=== PATIENT | female | born 1975 | race Caucasian/White ===

== ENCOUNTER → 2016-07-26 | Outpatient (CLI) | payer BC ==
--- NOTE | 2016-07-26 14:00 | RAD ---
Diagnostic mammogram of the right breast to include an ultrasound of the right breast 07/26/2016 HISTORY: 6 month follow-up of an area of nodularity within the right breast. COMPARISON: 01/20/2016 and 02/04/2016 This study was interpreted with the benefit of Computerized Aided Detection (CAD). FINDINGS: A CC digital mammogram of the right breast was performed. Comparison study is dated 02/04/2016 and 01/20/2016. The area of nodularity in the medial aspect of the right breast is less prominent on today's study. A real-time ultrasound examination of the right breast at the 8 o'clock position was performed. Comparison is made to the patient's previous ultrasound dated 02/04/2016. A 5 mm simple cyst is seen within the right breast at the 8:00 position. This is unchanged. Two simple cysts are seen in this area immediately adjacent to one another which measure 3 mm and 5 mm in size. These are unchanged. No solid mass is seen. IMPRESSION: Stable sonographic and mammographic appearance of the right breast as outlined above. I would recharacterize the patient's mammogram as a BI-RADS Category 2 benign findings with a recommendation for routine yearly screening mammography for follow-up. BI-RADS CATEGORY: 2 BENIGN FINDING(S) RECOMMENDED FOLLOW-UP: 12M 12 MONTH FOLLOW-UP PQRS compliance statement: Patient information was entered into a reminder system with a target due date 01/19/2017 for the next mammogram. Mammography is a sensitive method for finding small breast cancers, but it does not detect them all and is not a substitute for careful clinical examination. A negative mammogram does not negate a clinically suspicious finding and should not result in delay in biopsying a clinically suspicious abnormality. "Our facility is accredited by the [employer] Mammography [employer]."
== END | disposition home or self-care (01) ==
LOC: MAMMO 10:12
PROVIDERS: ATTEND Obstetrics & Gynecology
DX: R92.8 Other abnormal and inconclusive findings on diagnostic imaging of breast (principal)
CPT/HCPCS: 76641; G0206; 77065

== ENCOUNTER → 2017-03-30 | Outpatient (CLI) | payer BC ==
--- NOTE | 2017-04-02 09:46 | RAD ---
DATE: March 30, 2017 EXAM: MAMMO CHENTE SCREENING BILATERAL HISTORY: Screening study. COMPARISON: January 20, 2016 This study was interpreted with the benefit of Computerized Aided Detection (CAD). 2-D digital mammographic views of both breasts were performed in the CC and MLO projections. 3-D digital tomosynthesis of both breasts were performed in the CC and MLO projections and reviewed on a computer workstation. FINDINGS: The breast parenchyma is scattered and mildly dense. There are no dominant suspicious masses, suspicious microcalcifications or evidence of architectural distortion. IMPRESSION: No mammographic indicators for malignancy. BI-RADS CATEGORY: 1 NEGATIVE RECOMMENDED FOLLOW-UP: 12M 12 MONTH FOLLOW-UP PQRS compliance statement: Patient information was entered into a reminder system with a target due date March 31, 2018 for the next mammogram. Mammography is a sensitive method for finding small breast cancers, but it does not detect them all and is not a substitute for careful clinical examination. A negative mammogram does not negate a clinically suspicious finding and should not result in delay in biopsying a clinically suspicious abnormality. "Our facility is accredited by the [employer] Mammography [employer]." The patient's breast density may affect the ability of mammography to detect breast cancer. There are 4 categories of breast density, A, B, C and D. Breast density A means that most of the breast tissue is replaced with adipose tissue and therefore is not dense. Breast density B means that the breast tissue is mildly dense and scattered. Breast density C means that the breast tissue is heterogeneously dense. Breast density D means that the breast tissue is very dense. Breast densities especially C and D may decrease the sensitivity of mammography to detect breast cancer. Therefore, the patient may benefit from 3-D breast mammography (3D breast tomography) as a part of their screening mammogram. Insurance may or may not pay for this additional imaging. The patient's breast density based on today's mammogram is category B.
== END | disposition home or self-care (01) ==
LOC: MAMMO 14:55
PROVIDERS: ATTEND Obstetrics & Gynecology
DX: Z12.31 Encounter for screening mammogram for malignant neoplasm of breast (principal)
CPT/HCPCS: 77063; 77067

== ENCOUNTER → 2018-04-22 | Outpatient (CLI) | payer BC, OTHER ==
--- NOTE | 2018-04-22 16:27 | RAD ---
DATE: 04/22/2018 EXAM: MAMMO CHENTE SCREENING BILATERAL HISTORY: Routine screening COMPARISON: 03/30/2017 This study was interpreted with the benefit of Computerized Aided Detection (CAD). Breast Density: HETERO The breast parenchyma is heterogenously dense, which could reduce sensitivity of mammography. Breast parenchyma level C. FINDINGS: 2-D and 3-D tomosynthesis imaging was performed in CC and MLO projections. On right CC chente image #16 a 10 x 4 mm oval-shaped nodule is noted inferiorly in the right breast at the 6:00 location. It is not clearly visualized on previous studies. No other new or enlarging breast densities are seen. No suspicious microcalcifications are evident. IMPRESSION: Small inferior right breast nodule as described above. Sonographic evaluation is suggested. BI-RADS CATEGORY: 0 INCOMPLETE: NEEDS ADDITIONAL IMAGING EVALUATION AND/OR PRIOR MAMMOGRAMS FOR COMPARISON. RECOMMENDED FOLLOW-UP: ADD ADDITIONAL IMAGING PQRS compliance statement: Patient information was entered into a reminder system with a target due date for the next mammogram. Mammography is a sensitive method for finding small breast cancers, but it does not detect them all and is not a substitute for careful clinical examination. A negative mammogram does not negate a clinically suspicious finding and should not result in delay in biopsying a clinically suspicious abnormality. "Our facility is accredited by the [employer] Mammography [employer]."
== END | disposition home or self-care (01) ==
LOC: MAMMO 15:42
PROVIDERS: ATTEND Obstetrics & Gynecology
DX: Z12.31 Encounter for screening mammogram for malignant neoplasm of breast (principal); N63.14 Unspecified lump in the right breast, lower inner quadrant
CPT/HCPCS: 77063; 77067

== ENCOUNTER → 2018-05-03 | Outpatient (CLI) | payer OTHER ==
--- NOTE | 2018-05-03 14:14 | RAD ---
Indication: Callback. Technique: Limited ultrasound of the right breast with grayscale and color Doppler images Comparison: Screening mammogram from 04/22/2018. Findings: At 6:00 position approximately 4 cm from the nipple there is an oval-shaped hypoechoic lesion which is wider than taller without internal vascularity measuring 0.5 x 0.6 x 0.2 cm likely prominent duct or decompressed cyst. There is another mass at 6:00 position approximately 4 cm from the nipple measuring 1.0 x 0.7 x 0.5 cm mixed echogenicity lesion which is taller than wider with multiple internal septations and vascularity. No posterior shadowing is seen. Impression: 1. 2 lesions in the right breast the larger one at 7 cm from the nipple shows some internal vascularity which makes it a suspicious lesion. BI-RADS 4. Suspicious. Ultrasound-guided aspiration or core biopsy recommended.
== END | disposition home or self-care (01) ==
LOC: US 13:10
PROVIDERS: ATTEND Internal Medicine
DX: N63.13 Unspecified lump in the right breast, lower outer quadrant (principal)
CPT/HCPCS: 76641

== ENCOUNTER → 2019-07-04 | Outpatient (CLI) | payer OTHER ==
--- NOTE | 2019-07-04 15:49 | RAD ---
EXAMINATION: Diagnostic bilateral mammogram and right breast ultrasound, 07/04/2019 1:00 PM CLINICAL INDICATION: 43-year-old woman presenting for diagnostic bilateral mammogram. History of masses at 6:00 in the right breast, one of which was benign apocrine metaplasia on biopsy. Family history of mother with breast cancer twice by the age of 50. COMPARISON: Screening mammogram 04/22/2018 and 03/30/2017. right breast ultrasound 05/03/2018. BILATERAL DIAGNOSTIC MAMMOGRAM: TECHNIQUE: Digital bilateral full-field CC and MLO views, and CC and MLO tomosynthesis views of the breasts were obtained. CAD was utilized. FINDINGS: The breasts are heterogeneously dense, which may obscure small masses. There is a partially obscured 1.3 cm mass in the outer right breast at 9:00. This was seen on prior screening mammogram but not definitively present on multiple prior exams. There is an additional 5 mm asymmetry in the upper right breast on MLO view, which is also unchanged. No suspicious mass in the left breast. No suspicious calcifications in either breast. Spot compression views of the right breast demonstrate persistence of the mass at 9:00. The asymmetry at 5:00 in the upper right breast has the appearance of superimposed breast tissue. No definite underlying mass in the upper right breast. RIGHT BREAST ULTRASOUND: TECHNIQUE: Grayscale and color Doppler ultrasound of the inferior and lateral right breast in the areas of concern was performed. FINDINGS: At 6:00, 4 cm from the nipple, an ovoid hypoechoic circumscribed mass measuring 5 x 2 x 5 mm is unchanged. This is parallel in orientation with no shadowing. At 6:00, 7 cm from nipple the previously biopsied hypoechoic mass with angular margins and internal septations has decreased in size, now 6 x 3 x 6 mm. This has no internal vascularity or shadowing. At 7-8:00 the somewhat linear and tubular hypoechoic structure seen on prior ultrasounds was similar in appearance. At 8:00, 3 cm the nipple there is an anechoic circumscribed cyst measuring 6 x 4 mm. Immediately adjacent to this there is a nearly anechoic ovoid mass at the fatty hilum, likely lymph node, measuring 5 x 3 mm. At 9:00, 8 cm the nipple, there is a similar-appearing ovoid hypoechoic mass with slightly angular margins. This measures 1.2 x 1.1 x 0.5 cm, is parallel in orientation and has some internal echogenicities. The mass is avascular. IMPRESSION: RIGHT BREAST: 1. 1.2 cm mildly suspicious hypoechoic mass at 9:00, 8 cm from nipple. This is similar in appearance to the previously biopsied benign mass at 6:00, although larger, and therefore may be of the same etiology. However, biopsy would also be a reasonable consideration, particularly given the patient's family history. The possibility of six-month follow-up versus ultrasound-guided biopsy was discussed with the patient, and the patient prefers a biopsy at this time. 2. Decreased size of biopsy-proven benign mass at 6:00, 7 cm the nipple. Unchanged 5 mm probable benign clustered microcysts or minimally complicated cyst at 6:00, 4 cm from the nipple. Additional incidental benign simple cyst and small benign minimally complicated cyst versus lymph node at 8:00, 3 cm from the nipple. 3. Right breast: BI-RADS: 4A-low level of suspicion for malignancy. Biopsy should be considered for the 1.2 cm mass in the right breast at 9:00, 8 cm from nipple. LEFT BREAST: 1. No evidence of malignancy in the left breast. 2. Left breast: BI-RADS: 1-negative. Recommend annual screening mammogram of the left breast. Electronically signed by: Jeimy Guadarrama MD (07/04/2019 3:47 PM) [id number]
== END | disposition home or self-care (01) ==
LOC: MAMMO 12:52
PROVIDERS: ATTEND Internal Medicine
DX: N63.11 Unspecified lump in the right breast, upper outer quadrant (principal); N64.89 Other specified disorders of breast; Z80.3 Family history of malignant neoplasm of breast
CPT/HCPCS: 76641; 77066; G0279; 77062

== ENCOUNTER → 2020-08-13 | Outpatient (CLI) | payer OTHER ==
--- NOTE | 2020-08-13 14:50 | RAD ---
EXAM: Bilateral digital diagnostic mammogram with tomosynthesis; right breast sonogram. HISTORY: 44-year-old female presents for follow-up evaluation of findings within the right breast dem onstrated on a prior mammogram and sonogram performed 07/04/2019. The patient is due for bilateral izzy mography. TECHNIQUE: Full-field digital craniocaudal and mediolateral oblique 2D and 3D tomosynthesis images of both breasts are obtained for evaluation. Computer aided detection was applied. Sonographic imaging of the right breast targeted to sites of prior findings was also performed. COMPARISON: 07/04/2019, 05/01/2018, 04/22/2018, 03/30/2017, 07/26/2016 BREAST PARENCHYMAL DENSITY: Level C - Heterogeneously dense. FINDINGS: There is been slight interval increase in nodular asymmetry at the 9:00 position of the rig ht breast approximately 8 cm from the nipple. There are additional areas of asymmetry and nodularity elsewhere within both breasts which are stable in appearance. There is a biopsy clip at the 6:00 posi tion of the right breast at mid depth. There is no architectural distortion. Sonographic imaging of the right breast demonstrates interval increase in the size of a hypoechoic le nick with internal echoes at the 9:00 position 8 cm from nipple, measuring 1.4 x 1.3 x 0.6 cm, previo usly measuring 1.1 x 0.6 x 0.5 cm. There is a similar-appearing lesion measuring 8 mm at the 6:00 pos ition 7 cm the nipple, consistent with the site of prior benign biopsy. There are several additional smaller hypoechoic lesions within the right breast, the largest of which measure the largest 7 mm at the 8:00 position 3 cm from the nipple and 6 mm at the 8:00 position 3 cm from the nipple. The multip licity of these lesions and sonographic appearance favors a benign complicated cystic or fibrocystic etiology. There is no convincing blood flow within these lesions to suggest a solid lesion component. IMPRESSION: 1. Increased size of a 1.4 cm lesion at the 9:00 position of the right breast 8 cm from the nipple. B iopsy of this lesion was recommended on the sonogram performed 07/04/2019. However, the lesion was rep ortedly not reproducible at the time of biopsy. Given interval increase in the size of this lesion, s onographic guided biopsy is recommended for definitive diagnosis. 2. Multiple benign-appearing cystic and fibrocystic lesions throughout the right breast, one of which at the 6:00 position corresponds with the site of reported benign biopsy. 3. No new suspicious finding within the left breast. 4. BI-RADS Category 4a: Suspicious abnormality - Low suspicion. Sonographic biopsy of the right breas t is recommended. These findings and recommendations were discussed with the patient and communicated to Luz Temple, the clinical refrigeration manager at the referring physician office, at 1440 hours on 08/13/2020. If your mammogram demonstrates that you have dense breast tissue, which could hide abnormalities, and if you have other risk factors for breast cancer that have been identified, you might benefit from s upplemental screening tests that may be suggested by your ordering physician. Dense breast tissue, i n and of itself, is a relatively common condition. This information is not provided to cause undue c oncern, but rather to raise your awareness and to promote discussion with your physician regarding th e presence of other risk factors, in addition to dense breast tissue. A report of your mammography re sults will be sent to you and your physician. You should contact your physician if you have any ques tions or concerns regarding this report. Mammography is a sensitive method for finding small breast cancers, but it does not detect them all a nd is not a substitute for careful clinical examination. A negative mammogram does not negate a clin ically suspicious finding and should not result in delay in biopsying a clinically suspicious abnorma lity. PQRS compliance statement - Patient information was entered into a reminder system with a target due date for the next mammogram. "Our facility is accredited by the [employer] Mammography [employer]." Electronically signed by: Xin Hercules MD (08/13/2020 2:48 PM) [id number]
== END ==
LOC: MAMMO 13:10
PROVIDERS: ATTEND Internal Medicine
DX: N64.89 Other specified disorders of breast (principal); N63.10 Unspecified lump in the right breast, unspecified quadrant
CPT/HCPCS: 76641; 77066; G0279; 77062